=== PATIENT | male | born 1955 | race Two or more races ===

== ENCOUNTER 2024-09-08 10:14 | Emergency (ER) | payer OTHER ==
[~2024-09-08] VITALS: Ht 162.6 cm; Wt 77.1 kg
[2024-09-08] MEDS ORDERED: SYNTHROID100 MCG PO (10:54)
[2024-09-08] MEDS ORDERED: SIMVASTATIN5 MG PO (10:54)
[2024-09-08] MEDS ORDERED: TOPROL XL25 M1 (10:54)
[2024-09-08] MEDS ORDERED: DICLOFENAC SODI75 MG PO (11:45)
[2024-09-08] MEDS ORDERED: TRIAMCINOLONE ACETONIDE 40 MG/ML VIAL IM ONE (11:45)
[2024-09-08] MEDS ORDERED: KETOROLAC TROMETHAMINE 60 MG VIAL IM ONE (11:45)
[2024-09-08] MEDS ORDERED: NORFLEX100MG PO (11:45)
== END 2024-09-08 12:43 | disposition home or self-care (01) ==
LOC: ER 10:16
DX: M54.50 Low back pain, unspecified (principal)
CPT/HCPCS: 96372; 99282; J1885; J3301